=== PATIENT | male | born 1995 | race Caucasian/White ===

== ENCOUNTER 2016-06-15 08:40 | Emergency (ER) | payer SELFPAY ==
[2016-06-15] MEDS ORDERED: NORMAL SALINE 1000 ML 1,000 ML IV PRN (09:20)
[2016-06-15] MEDS ORDERED: IPRATROPIUM/ALBUTEROL 0.5-2.5 MG/3 ML AMPUL NEB ONE (09:21)
--- NOTE | 2016-06-15 09:23 | ER Document Report ---
ED Respiratory Problem - General Chief Complaint: Cold Symptoms Stated Complaint: SHOULDER PAIN Time seen by provider: 09:22 Mode of Arrival: Ambulatory Information source: Patient Notes: 20-year-old man who presents to the emergency room with sharp right chest pain, shortness of breath, productive cough (brown grayish sputum). Patient states he awoke with the pain. TRAVEL OUTSIDE OF THE [place] IN LAST 30 DAYS: No - HPI Patient complains to provider of: No: Asthma, Chest pain, CHF, COPD, Cough, Hurts to breath, Short of breath, Other Onset: Just prior to arrival Duration: Continuous Initiating Event: No: Allergy, Aspiration/Choking, Exertion, Exposure to chemicals, Exposure to dust, Exposure to fumes, Exposure to mold, Exposure to smoke, Out of meds, Sports/exercise, URI, Other Quality of pain: Sharp Severity: Moderate Pain Level: 3 Context: Smoker. denies: Hx CHF, Hx COPD Short of Breath: Moderate Chest pain/discomfort: Right Cough: Productive Sputum amount: Small Sputum color: Pham Sputum consistency: denies: Frothy, Mucoid, Mucoid Plug, Tenacious, Thick, Thin At home treatment: denies: Bronchodilators, CPAP, Diuretics, Inhaled steroids, Oral steroids, Oxygen, Singulair, Theophylline EMS treatments: No: Bronchodilators, CPAP, Diuretics, Epinephrine, Nitrates, Oxygen, Solumedrol Associated symptoms: Chills, Congestion, Sweaty Similar symptoms previously: No Recently seen / treated by doctor: No - Related Data Allergies/Adverse Reactions: No Known Allergies Allergy (Verified 06/15/16 08:44) Past Medical History - General Information source: Patient - Social History Smoking Status: Current Every Day Smoker Cigarette use (# per day): Yes - 1 pack per day for the past 9 years Chew tobacco use (# tins/day): No Frequency of alcohol use: None Drug Abuse: None Lives with: Family Family History: Reviewed & Not Pertinent Patient has suicidal ideation: No Patient has homicidal ideation: No - Medical History Medical History: Negative Renal/ Medical History: Denies: Hx Peritoneal Dialysis Surgical Hx: Negative - Immunizations Hx Diphtheria, Pertussis, Tetanus Vaccination: No Review of Systems - Review of Systems Notes: Review of systems: Constitutional: Denies fever, chills. EENT: Denies ear pain, sinus tenderness, throat pain, throat swelling. Cardiovascular: Denies chest pain, palpitations, dyspnea or edema. Respiratory: See H&P Abdomen: Denies abdominal pain, nausea, vomiting, diarrhea. Denies BRBPR or melena. Genitourinary: Denies dysuria, pyuria, hematuria, flank pain. Musculoskeletal: denies joint pain or swelling, denies back pain. Neurologic: Denies headache, photophobia, neck stiffness, weakness. Denies loss of bowel or bladder function. Denies saddle anesthesia. Skin: Denies rash, lesions. Physical Exam - Vital signs Vitals: Temp Pulse Resp BP Pulse Ox 97.9 F 100 18 148/76 H 100 06/15/16 08:45 06/15/16 08:45 06/15/16 08:45 06/15/16 08:45 06/15/16 08:45 Notes: Physical exam: GENERAL: 20-year-old man, alert and oriented 3, no acute distress. HEAD: Atraumatic, normocephalic. EYES: Pupils equal round and reactive to light, extraocular movements intact, sclera anicteric, conjunctiva are normal. ENT: TMs normal, nares patent, oropharynx clear without exudates. Moist mucous membranes. NECK: Normal range of motion, supple without lymphadenopathy or JVD. LUNGS: Scattered wheezes HEART: Regular rate and rhythm without murmurs, rubs or gallops. ABDOMEN: Soft, normoactive bowel sounds. No tenderness to palpation. No guarding, no rebound. No masses appreciated. EXTREMITIES: Normal range of motion, no pitting or edema. No clubbing or cyanosis. NEUROLOGICAL: Cranial nerves II through XII grossly intact. Normal speech, normal gait. PSYCH: Normal mood, normal affect. SKIN: Warm, Dry, normal turgor, no rashes or lesions noted. Course - Re-evaluation Re-evalutation: 06/15/16 21:27 I discussed case with Dr. Lay who reviewed the CT scan. He did bring up the possibility of lymphoma and based upon where the lesions are, recommended referring to [place] because of the need for getting a tissue diagnosis. I discussed the case with Dr. Anguiano at [place] and he is willing to see the patient on in the [facility] for evaluation. I have faxed over the patient's x-ray report, CT report and labs with the patient demographics to Dr. Anguiano's office. Additionally, I have given a copy of the CT and chest x-ray on disc as well as a copy of the labs to bring to the clinic on . - Vital Signs Vital signs: Temp Pulse Resp BP Pulse Ox 98.0 F 80 16 140/70 H 100 06/15/16 14:32 06/15/16 14:32 06/15/16 14:32 06/15/16 14:32 06/15/16 14:32 - Laboratory Result Diagrams: 06/15/16 09:40 06/15/16 09:40 Laboratory results interpreted by me: 06/15/16 09:40 WBC 12.3 H Absolute Neutrophils 9.2 H - Diagnostic Test Radiology reviewed: Image reviewed, Reports reviewed - Chest x-ray was clear. CTA shows a pleural-based mass 2 x 2 centimeters in the right upper hemithorax. There is also possible anterior mediastinal mass. - EKG Interpretation by Me Rate: Normal Rhythm: NSR - EKG shows normal sinus rhythm with a ventricular rate of 86, no acute ST-T wave changes Discharge - Discharge Clinical Impression: pleuritic chest pain, right pleural mass Condition: Stable Disposition: HOME, SELF-CARE Instructions: Oral Narcotic Medication ([facility]) Additional Instructions: Recommendations: As we discussed, it is important that you follow-up with doctors in [place] to assess whether this could be possible lymphoma. You have an appointment at: [facility] [place] [address] [place] [address] [phone] They wanted you they are this at 1245 Bring the packet that we've given you: The CT and chest x-ray on disc, labs, x- ray and CT reports. Return to the emergency room for worsening pain or shortness of breath. Take the pain medicine as prescribed: See the narcotic instruction sheet. Do not drive or operate machinery while on the narcotic. Take the antibiotic as prescribed Prescriptions: Azithromycin [Zithromax 250 mg Tablet] 250 mg PO ASDIR PRN #6 tablet PRN Reason: Oxycodone HCl/Acetaminophen [Percocet 5-325 mg Tablet] 1 - 2 tab PO ASDIR PRN # 25 tablet PRN Reason: Forms: Parent Work Note
[2016-06-15 09:51] LABS: ABSOLUTE EOSINOPHILS # (AUTO) 0.3 10^3/uL (0.0-0.6); ABSOLUTE LYMPHOCYTES (AUTO) 2.1 10^3/uL (0.5-4.7); ABSOLUTE MONOCYTES (AUTO) 0.7 10^3/uL (0.1-1.4); ABSOLUTE NEUT (AUTO) 9.2 10^3/uL (1.7-8.2); BASOPHILS % (AUTO) 0.3 % (0-2); EOSINOPHILS % (AUTO) 2.5 % (0-6); HEMATOCRIT 42.9 % (37.9-51.0); HEMOGLOBIN 15.1 g/dL (13.5-17.0); HGB HCT DIFFERENCE 2.4; LYMPHOCYTES % (AUTO) 17.1 % (13-45); MEAN CORPUSCULAR HEMOGLOBIN 29.6 pg (27.0-33.4); MEAN CORPUSCULAR HGB CONC 35.2 g/dL (32.0-36.0); MEAN CORPUSCULAR VOLUME 84 fl (80-97); MONOCYTES % (AUTO) 5.3 % (3-13); RED BLOOD COUNT 5.11 10^6/uL (4.35-5.55); RED CELL DISTRIBUTION WIDTH 13.4 % (11.5-14.0); SEGMENTED NEUTROPHILS % (AUTO) 74.8 % (42-78); WHITE BLOOD COUNT 12.3 10^3/uL (4.0-10.5)
[2016-06-15 10:07] LABS: ALANINE AMINOTRANSFERASE 28 U/L (21-72); ALBUMIN 4.5 g/dL (3.5-5.0); ALKALINE PHOSPHATASE 90 U/L (38-126); ANION GAP 15 (5-19); ASPARTATE AMINO TRANSFERASE 21 U/L (17-59); BILIRUBIN,TOTAL 0.7 mg/dL (0.2-1.3); BLOOD UREA NITROGEN 11 mg/dL (7-20); CALCIUM 9.8 mg/dL (8.4-10.2); CARBON DIOXIDE 26 mmol/L (22-30); CHLORIDE 101 mmol/L (98-107); CREATININE RESULT 0.82 mg/dL (0.52-1.25); GLUCOSE 108 mg/dL (75-110); POTASSIUM 4.5 mmol/L (3.6-5.0); SODIUM 141.5 mmol/L (137-145); TOTAL PROTEIN 7.8 g/dL (6.3-8.2)
[2016-06-15] MEDS ORDERED: METHYLPREDNISOLONE INJ 125 MG/2 ML SDV IV ONE (10:19)
[2016-06-15] MEDS ORDERED: OXYCODONE-ACETAMINOPHEN 5-325 MG TABLET PO ONE (11:25)
[2016-06-15 12:09] LABS: CREATINE KINASE MB < 0.22 ng/mL (<4.55); TROPONIN I < 0.012 ng/mL
[2016-06-15] MEDS ORDERED: AZITHROMYCIN 250 MG TABLET PO ONE (13:20)
[2016-06-15 14:33] VITALS: BP 140/70
--- NOTE | 2016-06-15 15:31 | EKG REPORT ---
SEVERITY:- NORMAL ECG - SINUS RHYTHM : Confirmed by: Carlton Whyte MD 15-Jun-2016 15:31:15
== END 2016-06-15 14:33 | disposition home or self-care (01) ==
LOC: ER 08:40
DX: R07.81 Pleurodynia (principal); R91.8 Other nonspecific abnormal finding of lung field; R06.02 Shortness of breath; R05 Cough; F17.210 Nicotine dependence, cigarettes, uncomplicated
CPT/HCPCS: 93005; 94640; 99284; 96361; 96374; 36415; 82553; 82550; 85025; 80053; 84484; 71020; 71275; 93010; J2930; J7030; J7620

== ENCOUNTER 2016-07-20 23:34 | Emergency (ER) | payer OTHER ==
[2016-07-21 00:22] LABS: ABSOLUTE BASOPHILS # (AUTO) 0.1 10^3/uL (0.0-0.2); ABSOLUTE LYMPHOCYTES (AUTO) 2.6 10^3/uL (0.5-4.7); ABSOLUTE MONOCYTES (AUTO) 0.7 10^3/uL (0.1-1.4); ABSOLUTE NEUT (AUTO) 9.1 10^3/uL (1.7-8.2); BASOPHILS % (AUTO) 0.4 % (0-2); EOSINOPHILS % (AUTO) 0.2 % (0-6); HEMATOCRIT 41.4 % (37.9-51.0); HEMOGLOBIN 14.4 g/dL (13.5-17.0); HGB HCT DIFFERENCE 1.8; LYMPHOCYTES % (AUTO) 20.9 % (13-45); MEAN CORPUSCULAR HEMOGLOBIN 28.6 pg (27.0-33.4); MEAN CORPUSCULAR HGB CONC 34.8 g/dL (32.0-36.0); MEAN CORPUSCULAR VOLUME 82 fl (80-97); MONOCYTES % (AUTO) 5.4 % (3-13); RED BLOOD COUNT 5.03 10^6/uL (4.35-5.55); RED CELL DISTRIBUTION WIDTH 13.8 % (11.5-14.0); SEGMENTED NEUTROPHILS % (AUTO) 73.1 % (42-78); WHITE BLOOD COUNT 12.4 10^3/uL (4.0-10.5)
[2016-07-21 00:39] LABS: ALANINE AMINOTRANSFERASE 28 U/L (21-72); ALBUMIN 4.8 g/dL (3.5-5.0); ALKALINE PHOSPHATASE 80 U/L (38-126); ANION GAP 17 (5-19); ASPARTATE AMINO TRANSFERASE 16 U/L (17-59); BILIRUBIN,DIRECT 0.1 mg/dL (0.0-0.4); BILIRUBIN,TOTAL 0.6 mg/dL (0.2-1.3); BLOOD UREA NITROGEN 12 mg/dL (7-20); CALCIUM 10.6 mg/dL (8.4-10.2); CARBON DIOXIDE 25 mmol/L (22-30); CHLORIDE 104 mmol/L (98-107); CREATININE RESULT 0.76 mg/dL (0.52-1.25); GLUCOSE 100 mg/dL (75-110); SODIUM 145.8 mmol/L (137-145); TOTAL PROTEIN 7.5 g/dL (6.3-8.2)
[2016-07-21 00:40] LABS: POTASSIUM 3.8 mmol/L (3.6-5.0)
[2016-07-21] MEDS ORDERED: NORMAL SALINE 500 ML IV ONE (01:20)
[2016-07-21] MEDS ORDERED: ACETAMINOPHEN 325 MG TABLET PO ONE (01:20)
--- NOTE | 2016-07-21 01:27 | ER Document Report ---
ED General - General Chief Complaint: Cough Stated Complaint: COUGH/BLOOD Notes: Patient is a 20-year-old male who presents with complaint of coughing up blood. He is in please custody as he has come from [place] [facility]. He was seen March 15 with chest pain and difficulty breathing. At that time is CT angiography which showed a lung mass in the right side. We made arrangements to follow-up with Dr. Anguiano in [place]. He did follow-up with Dr. Anguiano. She says at that appointment a told him they wanted to repeat CT scan in 6 weeks, which would be this . Tonight he started having some coughing up of blood. He says that was one episode where he coughed up moderate amount of blood. He's not had any since. He says he has a lot of pain and burning in his lungs since that episode. No recent fevers or infections. No other complaints at this time. He takes no medications and is otherwise healthy. He is a smoker. TRAVEL OUTSIDE OF THE [place] IN LAST 30 DAYS: No - Related Data Allergies/Adverse Reactions: No Known Allergies Allergy (Verified 06/15/16 08:44) Past Medical History - Social History Smoking Status: Current Every Day Smoker Chew tobacco use (# tins/day): No Frequency of alcohol use: None Drug Abuse: None Family History: Reviewed & Not Pertinent Patient has suicidal ideation: No Patient has homicidal ideation: No Pulmonary Medical History: Reports: Hx Asthma Renal/ Medical History: Denies: Hx Peritoneal Dialysis GI Medical History: Reports: Hx Gastroesophageal Reflux Disease Surgical Hx: Negative - Immunizations Hx Diphtheria, Pertussis, Tetanus Vaccination: No Review of Systems - Review of Systems Notes: My Normal Review Basic REVIEW OF SYSTEMS: CONSTITUTIONAL : Denies fever, chills, or sweats. Denies recent illness. EENT: Denies eye, ear, throat, or mouth pain or symptoms. Denies nasal or sinus congestion. CARDIOVASCULAR: Burning in chest RESPIRATORY: Hemoptysis GASTROINTESTINAL: Denies abdominal pain. Denies nausea, vomiting, or diarrhea. Denies constipation. Last BM: MUSCULOSKELETAL: Denies neck or back pain or joint pain or swelling. SKIN: Denies rash or skin lesions. HEMATOLOGIC : Denies easy bruising or bleeding. NEUROLOGICAL: Denies altered mental status or loss of consciousness. Denies headache. Denies weakness or paralysis or loss of use of either side. Denies problems with gait or speech. Denies sensory or motor loss. ALL OTHER SYSTEMS REVIEWED AND NEGATIVE. Physical Exam - Vital signs Vitals: Temp Pulse Resp BP Pulse Ox 98.0 F 55 L 20 107/52 L 97 07/20/16 23:41 07/20/16 23:41 07/20/16 23:41 07/20/16 23:41 07/20/16 23:41 - Notes Notes: General Appearance: Well nourished, alert, cooperative, no acute distress, mild obvious discomfort. Vitals: reviewed, See vital signs table. Head: no swelling or tenderness to the head Eyes: PERRL, EOMI, Conjuctiva clear Mouth: No decreasd moisture Lungs: No wheezing, No rales, No rhonci, No accessory muscle use, good air exchange bilaterally. Heart: Normal rate, Regular rythm, No murmur, no rub Abdomen: Normal BS, soft, No rigidity, No abdominal tenderness, No guarding, no rebound, no abdominal masses, no organomegaly Extremities: strength 5/5 in all extremities, good pulses in all extremities, no swelling or tenderness in the extremities, no edema. Skin: warm, dry, appropriate color, no rash Neuro: speech clear, oriented x 3, normal affect, responds appropriately to questions. Course - Re-evaluation Re-evalutation: 07/21/16 05:52 Patient is been very well-appearing the whole time spent here. Only complaint he had was a burning going into his chest which she later said felt more like reflux. We did give him a GI cocktail which did help the symptoms. He says that when the blood came up it was coughing. He says it was not vomiting. I did repeat a CT scan of his chest which showed no evidence of the lung mass. Lung mass appears to have disappeared. Patient is feeling much improved and looks well. We'll place him on Prilosec. Informed him that if he has any coughing of blood or any vomiting of blood he must return to ER immediately. The no from the [place] [facility] says the patient coughed up blood clots. Patient denies seeing blood clots. He says it was 1 time he coughed up some blood. Patient again strongly encouraged return to ER if has any recurrence of his symptoms or if has increasing pain. Patient again encouraged to still follow-up with his doctor in [place] even though his CT scan is now normal. Patient agrees with plan and will be discharged home. Dictation of this chart was performed using voice recognition software; therefore, there may be some unintended grammatical errors. - Vital Signs Vital signs: Temp Pulse Resp BP Pulse Ox 98.0 F 72 18 128/72 H 97 07/21/16 04:36 07/21/16 04:36 07/21/16 04:36 07/21/16 04:36 07/21/16 04:36 - Laboratory Result Diagrams: 07/21/16 00:10 07/21/16 00:10 Laboratory results interpreted by me: 07/21/16 07/21/16 00:10 00:10 WBC 12.4 H Absolute Neutrophils 9.1 H Sodium 145.8 H Calcium 10.6 H AST 16 L Discharge - Discharge Clinical Impression: Hemoptysis Condition: Good Disposition: HOME, SELF-CARE Additional Instructions: Please have a low threshold to return to ER if you have recurrent coughing up of blood, worsening pain, difficulty breathing, or feel unwell. Your CT scan of your chest was normal today and did not show any evidence of recurrence of the mass that was seen on your previous CT scan. Despite this it is still very important that you follow up with Dr. Anguiano in [place] for your repeat evaluation. Prescriptions: Omeprazole Magnesium [Prilosec Otc] 40 mg PO DAILY #30 tablet.
[2016-07-21] MEDS ORDERED: MAG HYDROX/AL HYDROX/SIMETH SUSP 30 ML UDCUP PO ONE (03:22)
[2016-07-21] MEDS ORDERED: LIDOCAINE 2% VISCOUS SOLN 20 ML UDCUP PO ONE (03:22)
[2016-07-21] MEDS ORDERED: METOCLOPRAMIDE HCL ORAL SOLN 10 MG/10 ML UDCUP PO ONE (03:22)
[2016-07-21 04:40] VITALS: BP 128/72
== END 2016-07-21 04:30 | disposition home or self-care (01) ==
LOC: ER 23:34
DX: R04.2 Hemoptysis (principal); R05 Cough; F17.200 Nicotine dependence, unspecified, uncomplicated
CPT/HCPCS: 99284; 96360; 36415; 85025; 80053; 71020; 71260; J3490; J7040

== ENCOUNTER 2016-11-14 08:24 | Emergency (ER) | payer SELFPAY ==
[2016-11-14] MEDS ORDERED: OXYCODONE-ACETAMINOPHEN 5-325 MG TABLET PO ONE (09:00)
--- NOTE | 2016-11-14 09:11 | ER Document Report ---
ED GI/ - General Chief Complaint: Testicular Lump Stated Complaint: RIGHT TESTICLE PAIN Time Seen by Provider: 11/14/16 08:49 Mode of Arrival: Ambulatory Information source: Patient Notes: Patient presents complaining of right testicular pain and swelling that started 6 days ago. Patient does complain of some burning with urination and penile discharge that was white. Patient denies any concerns about sexually transmitted infection. TRAVEL OUTSIDE OF THE [place] IN LAST 30 DAYS: No - HPI Patient complains to provider of: Abdominal pain - Lower pelvic area, Dysuria, Groin pain, Testicular pain. No: Urinary retention, Vomiting Onset: Last week Timing/Duration: Persistent Quality of pain: Burning Pain Level: 5 Location: Pelvis, Right testicle Sexual history: Active Associated symptoms: Dysuria, Penile discharge, Urinary frequency. denies: Diarrhea, Fever, Inguinal mass, Nausea, Urinary hesitancy, Vomiting Exacerbated by: Movement Relieved by: Denies Similar symptoms previously: No Recently seen / treated by doctor: No - Related Data Allergies/Adverse Reactions: No Known Allergies Allergy (Verified 11/14/16 08:29) Past Medical History - General Information source: Patient - Social History Smoking Status: Current Every Day Smoker Chew tobacco use (# tins/day): No Frequency of alcohol use: Rare Drug Abuse: Other - iv drug use Occupation: [employer] Family History: Reviewed & Not Pertinent Pulmonary Medical History: Reports: Hx Asthma Renal/ Medical History: Denies: Hx Peritoneal Dialysis GI Medical History: Reports: Hx Gastroesophageal Reflux Disease Surgical Hx: Negative - Immunizations Hx Diphtheria, Pertussis, Tetanus Vaccination: No Review of Systems - Review of Systems Constitutional: No symptoms reported. denies: Fever EENT: No symptoms reported Cardiovascular: No symptoms reported Respiratory: No symptoms reported. denies: Cough, Short of breath Gastrointestinal: Abdominal pain - r inguinal/pelvic area. denies: Nausea, Vomiting Genitourinary: Dysuria, Frequency Male Genitourinary: Testicular pain, Penile discharge Musculoskeletal: No symptoms reported. denies: Back pain Skin: No symptoms reported Hematologic/Lymphatic: No symptoms reported Neurological/Psychological: No symptoms reported Physical Exam - Vital signs Vitals: Temp Pulse Resp BP Pulse Ox 97.6 F 98 20 142/77 H 99 11/14/16 08:29 11/14/16 08:29 11/14/16 08:29 11/14/16 08:29 11/14/16 08:29 - General General appearance: Appears well, Alert In distress: None - HEENT Head: Normocephalic, Atraumatic Eyes: Normal Nasal: Normal Mouth/Lips: Normal Mucous membranes: Normal Neck: Normal, Supple. No: Lymphadenopathy - Respiratory Respiratory status: No respiratory distress Chest status: Nontender Breath sounds: Normal. No: Rales, Rhonchi, Stridor, Wheezing Chest palpation: Normal - Cardiovascular Rhythm: Regular Heart sounds: S1 appreciated, S2 appreciated Murmur: No - Abdominal Inspection: Normal Distension: No distension Bowel sounds: Normal Tenderness: Tender - right lower pelvic/inguinal area Organomegaly: No organomegaly - Genitourinary Inspection: Normal Tenderness: Testicle tender - right, Epididymis tender - right Cremasteric reflex: Right reflex absent Scrotum: Swelling - r testicle Notes: Cecilia RN as standby no drainage or discharge from the penis, no inguinal lymphadenopathy - Back Back: Normal, Nontender. No: CVA tenderness - Extremities General upper extremity: Normal inspection, Normal ROM General lower extremity: Normal inspection, Normal ROM - Neurological Neuro grossly intact: Yes Cognition: Normal Angella Coma Scale Eye Opening: Spontaneous [place] Coma Scale Verbal: Oriented [place] Coma Scale Motor: Obeys Commands Angella Coma Scale Total: 15 - Psychological Associated symptoms: Normal affect, Normal mood - Skin Skin Temperature: Warm Skin Moisture: Dry Skin Color: Normal Course - Re-evaluation Re-evalutation: 11/14/16 10:[address] troy regarding pt presentation and diagnostic test results, agrees with plan to treat for epididymitis. Patient's abdomen soft, patient continues with right lower pelvic tenderness, no McBurney point tenderness. No guarding. 11/14/16 10:49 The patient has been informed that they may have pre-hypertension or hypertension based on a blood pressure reading in the emergency department. I recommend that patient call the primary care provider listed on their discharge instructions or a physician of their choice by this week to arrange follow-up for further evaluation of possible pre-hypertension or hypertension. - Vital Signs Vital signs: Temp Pulse Resp BP Pulse Ox 98.0 F 76 16 116/65 98 11/14/16 10:56 11/14/16 10:56 11/14/16 10:56 11/14/16 10:56 11/14/16 10:56 - Laboratory Result Diagrams: 11/14/16 09:17 11/14/16 09:17 Laboratory results interpreted by me: 11/14/16 11/14/16 11/14/16 09:17 09:17 09:17 RDW 14.1 H Glucose 120 H AST 15 L Urine Protein 100 H Urine Blood LARGE H Ur Leukocyte Esterase TRACE H Labs- Entire Visit 11/14/16 11/14/16 11/14/16 09:17 09:17 09:17 WBC 9.3 RBC 4.83 Hgb 13.8 Hct 40.0 MCV 83 MCH 28.6 MCHC 34.5 RDW 14.1 H Plt Count 249 Seg Neutrophils % 61.1 Lymphocytes % 29.9 Monocytes % 6.4 Eosinophils % 1.9 Basophils % 0.7 Absolute Neutrophils 5.7 Absolute Lymphocytes 2.8 Absolute Monocytes 0.6 Absolute Eosinophils 0.2 Absolute Basophils 0.1 Sodium 142.6 Potassium 4.1 Chloride 103 Carbon Dioxide 27 Anion Gap 13 BUN 9 Creatinine 0.82 Est GFR ( Amer) > 60 Est GFR (Non-Af Amer) > 60 Glucose 120 H Calcium 9.5 Total Bilirubin 0.6 Direct Bilirubin 0.3 Indirect Bilirubin Not Reportable Neonat Total Bilirubin Not Reportable AST 15 L ALT 28 Alkaline Phosphatase 99 Total Protein 7.4 Albumin 4.4 Urine Color YELLOW Urine Appearance SLIGHTLY-CLOUDY Urine pH 5.0 Ur Specific [place] 1.030 Urine Protein 100 H Urine Glucose (UA) NEGATIVE Urine Ketones NEGATIVE Urine Blood LARGE H Urine Nitrite NEGATIVE Urine Bilirubin NEGATIVE Urine Urobilinogen NEGATIVE Ur Leukocyte Esterase TRACE H Urine WBC (Auto) 43 Urine RBC (Auto) >182 Squamous Epi Cells Auto <1 Urine Mucus (Auto) OCC Urine Ascorbic Acid NEGATIVE 11/14/16 11:19 - Diagnostic Test Radiology reviewed: Reports reviewed Discharge - Discharge Clinical Impression: Acute epididymitis, Scrotal pain UTI (urinary tract infection) Qualifiers: Urinary tract infection type: site unspecified Hematuria presence: with hematuria Qualified Code(s): N39.0 - Urinary tract infection, site not specified Condition: Stable Disposition: HOME, SELF-CARE Instructions: Anti-Inflammatory Medication ([facility]), Doxycycline ([facility]), Epididymitis ([facility]), Urinary Tract Infection ([facility]), Rocephin ([facility]) Additional Instructions: Return immediately for any new or worsening symptoms Followup with your primary care provider, call tomorrow to make a followup appointment Follow-up with the urologist for any continued problems Avoid use of IV drugs wear supportive underwear cultures are pending, we will call if you need any different treatment Prescriptions: Doxycycline Hyclate 100 mg PO BID #20 capsule Naproxen [Naprosyn 250 Nmg Tablet] 1 tab PO BID #14 tablet Forms: Elevated Blood Pressure, Return to Work Referrals: [facility] [Provider Group] - Follow up as needed [facility] [Provider Group] - Follow up as needed
[2016-11-14 09:34] LABS: ABSOLUTE BASOPHILS # (AUTO) 0.1 10^3/uL (0.0-0.2); ABSOLUTE EOSINOPHILS # (AUTO) 0.2 10^3/uL (0.0-0.6); ABSOLUTE LYMPHOCYTES (AUTO) 2.8 10^3/uL (0.5-4.7); ABSOLUTE MONOCYTES (AUTO) 0.6 10^3/uL (0.1-1.4); ABSOLUTE NEUT (AUTO) 5.7 10^3/uL (1.7-8.2); BASOPHILS % (AUTO) 0.7 % (0-2); EOSINOPHILS % (AUTO) 1.9 % (0-6); HEMOGLOBIN 13.8 g/dL (13.5-17.0); HGB HCT DIFFERENCE 1.4; LYMPHOCYTES % (AUTO) 29.9 % (13-45); MEAN CORPUSCULAR HEMOGLOBIN 28.6 pg (27.0-33.4); MEAN CORPUSCULAR HGB CONC 34.5 g/dL (32.0-36.0); MEAN CORPUSCULAR VOLUME 83 fl (80-97); MONOCYTES % (AUTO) 6.4 % (3-13); RED BLOOD COUNT 4.83 10^6/uL (4.35-5.55); RED CELL DISTRIBUTION WIDTH 14.1 % (11.5-14.0); SEGMENTED NEUTROPHILS % (AUTO) 61.1 % (42-78); WHITE BLOOD COUNT 9.3 10^3/uL (4.0-10.5)
[2016-11-14 09:41] LABS: APPEARANCE,URINE SLIGHTLY-CLOUDY; BILIRUBIN,URINE NEGATIVE (NEGATIVE); GLUCOSE, URINE NEGATIVE (NEGATIVE); KETONES,URINE NEGATIVE (NEGATIVE); LEUKOCYTE ESTERASE,URINE TRACE (NEGATIVE); NITRITE,URINE NEGATIVE (NEGATIVE); PROTEIN,URINE 100 mg/dL (NEGATIVE); UROBILINOGEN,URINE NEGATIVE mg/dL (<2.0)
[2016-11-14 09:50] LABS: ALANINE AMINOTRANSFERASE 28 U/L (21-72); ALBUMIN 4.4 g/dL (3.5-5.0); ALKALINE PHOSPHATASE 99 U/L (38-126); ANION GAP 13 (5-19); ASPARTATE AMINO TRANSFERASE 15 U/L (17-59); BILIRUBIN,DIRECT 0.3 mg/dL (0.0-0.4); BILIRUBIN,TOTAL 0.6 mg/dL (0.2-1.3); BLOOD UREA NITROGEN 9 mg/dL (7-20); CALCIUM 9.5 mg/dL (8.4-10.2); CARBON DIOXIDE 27 mmol/L (22-30); CHLORIDE 103 mmol/L (98-107); CREATININE RESULT 0.82 mg/dL (0.52-1.25); GLUCOSE 120 mg/dL (75-110); POTASSIUM 4.1 mmol/L (3.6-5.0); SODIUM 142.6 mmol/L (137-145); TOTAL PROTEIN 7.4 g/dL (6.3-8.2)
--- NOTE | 2016-11-14 10:16 | RADIOLOGY REPORT (SQ) ---
EXAM DESCRIPTION: U/S SCROTUM W/DOPPLER COMPLETED DATE/TIME: 11/14/2016 9:59 am REASON FOR STUDY: r scrotal pain,swelling COMPARISON: None. TECHNIQUE: Static and realtime shook scale imaging of the scrotum and testes. Selected color Doppler and spectral images recorded to document blood flow. LIMITATIONS: None. FINDINGS: RIGHT: TESTICLE: Normal size. Normal echotexture. Normal blood flow. No mass. EPIDIDYMIS: Enlarged and hyperemic compared to the left. HYDROCELE OR VARICOCELE: No. HERNIA OR EXTRA-TESTICULAR MASS: No. OTHER: No other significant finding. LEFT: TESTICLE: Normal size. Normal echotexture. Normal blood flow. No mass. EPIDIDYMIS: Normal. HYDROCELE OR VARICOCELE: No. HERNIA OR EXTRA-TESTICULAR MASS: No. OTHER: No other significant finding. IMPRESSION: Right epididymitis. TECHNICAL DOCUMENTATION: JOB ID: [id number] [employer]- All Rights Reserved
[2016-11-14] MEDS ORDERED: CEFTRIAXONE RTU 1 GM/D5W 50 ML IV ONE (10:27)
[2016-11-14] MEDS ORDERED: DOXYCYCLINE HYCLATE 100 MG TABLET PO ONE (10:29)
[2016-11-14] MEDS ORDERED: LIDOCAINE 1% INJ-PF (10 MG/ML) 30 ML SDV ONE (10:37)
[2016-11-14] MEDS ORDERED: CEFTRIAXONE INJ 1000 MG VIAL ONE (10:37)
[2016-11-14 10:58] VITALS: BP 116/65
[2016-11-14 11:03] LABS: CHLAM PCR DETECTED (NOT DETECT)
== END 2016-11-14 10:58 | disposition home or self-care (01) ==
LOC: ER 08:24
DX: N45.1 Epididymitis (principal); N39.0 Urinary tract infection, site not specified; N50.89 Other specified disorders of the male genital organs; N50.811 Right testicular pain; R10.9 Unspecified abdominal pain; R10.2 Pelvic and perineal pain; R30.0 Dysuria; R10.30 Lower abdominal pain, unspecified
CPT/HCPCS: 99284; 96372; 36415; 87086; 85025; 80053; 81001; 87491; 87591; 76870; 93976; J3490; J0696

== ENCOUNTER 2017-11-08 08:12 | Emergency (ER) | payer SELFPAY ==
[2017-11-08 08:21] VITALS: BP 143/74
--- NOTE | 2017-11-08 09:06 | ER Document Report ---
HPI - HPI Patient complains to provider of: Rash since he was in skilled nursing Pain Level: Denies Context: 22-year-old male was diagnosed with scabies while he was in skilled nursing and was treated with oral anti-fungal and antibiotics. It itches at night. He thinks that he was not treated properly. Associated Symptoms: None Exacerbated by: Denies Relieved by: Denies Similar symptoms previously: Yes Recently seen / treated by doctor: No - ROS ROS below otherwise negative: Yes Systems Reviewed and Negative: Yes All other systems reviewed and negative Past Medical History - General Information source: Patient - Social History Smoking Status: Current Every Day Smoker Frequency of alcohol use: None Drug Abuse: None Lives with: Family Family History: Reviewed & Not Pertinent Pulmonary Medical History: Reports: Hx Asthma Renal/ Medical History: Denies: Hx Peritoneal Dialysis GI Medical History: Reports: Hx Gastroesophageal Reflux Disease Surgical Hx: Negative - Immunizations Hx Diphtheria, Pertussis, Tetanus Vaccination: No Vertical Provider Document - CONSTITUTIONAL Agree With Documented VS: Yes Exam Limitations: No Limitations - INFECTION CONTROL TRAVEL OUTSIDE OF THE [place] IN LAST 30 DAYS: No - DERM Integumentary: Rash - Isolated groin, waist, finger web crusted papules Course - Vital Signs Vital signs: Temp Pulse Resp BP Pulse Ox 97.9 F 96 18 143/74 H 97 11/08/17 08:19 11/08/17 08:19 11/08/17 08:19 11/08/17 08:19 11/08/17 08:19 Discharge - Discharge Clinical Impression: Scabies Condition: Good Disposition: HOME, SELF-CARE Instructions: Anti-Mite Skin Creams, Scabies ([facility]) Additional Instructions: Apply the cream from the neck down between fingers and toes pubic and buttocks, leave on for 12 hours and then wash off You may itch up to 2 weeks but this should kill the scabies See a senior warehouse clerk if this persists. Prescriptions: Permethrin [Elimite] 60 gm TP ONCE PRN 1 Days cream..g. PRN Reason: Referrals: MICHAEL DOW DO [ACTIVE STAFF] - Follow up as needed
== END 2017-11-08 09:11 | disposition home or self-care (01) ==
LOC: ER 08:12
DX: B86 Scabies (principal); J45.909 Unspecified asthma, uncomplicated; F17.200 Nicotine dependence, unspecified, uncomplicated
CPT/HCPCS: 99283

== ENCOUNTER 2018-07-29 10:47 | Emergency (ER) | payer MEDICAID ==
[2018-07-29 10:52] VITALS: BP 137/79
[2018-07-29] MEDS ORDERED: PENICILLIN V POTASSIUM 500 MG TABLET PO ONE (11:07)
--- NOTE | 2018-07-29 11:09 | ER Document Report ---
HPI - HPI Patient complains to provider of: dental pain Time Seen by Provider: 07/29/18 11:02 Onset: Yesterday Onset/Duration: Gradual Quality of pain: Achy Pain Level: 4 Context: Patient presents complaining of dental pain that worsened yesterday. Patient does have an appointment this month with the dentist. Patient denies any fever or facial swelling. Associated Symptoms: denies: Fever Exacerbated by: Denies Relieved by: Denies Similar symptoms previously: Yes Recently seen / treated by doctor: No - ROS ROS below otherwise negative: Yes Systems Reviewed and Negative: Yes All other systems reviewed and negative - CONSTITUTIONAL Constitutional: DENIES: Fever - EENT Notes: Dental pain - RESPIRATORY Respiratory: DENIES: Coughing - GASTROINTESTINAL Gastrointestinal: DENIES: Nausea, Patient vomiting - DERM Skin Color: Normal Skin Problems: None Past Medical History - General Information source: Patient - Social History Smoking Status: Current Every Day Smoker Smoking Education Provided: Yes Frequency of alcohol use: None Drug Abuse: None Occupation: Self-employed Family History: Reviewed & Not Pertinent Pulmonary Medical History: Reports: Hx Asthma Renal/ Medical History: Denies: Hx Peritoneal Dialysis GI Medical History: Reports: Hx Gastroesophageal Reflux Disease Surgical Hx: Negative - Immunizations Hx Diphtheria, Pertussis, Tetanus Vaccination: No Vertical Provider Document - CONSTITUTIONAL Agree With Documented VS: Yes Exam Limitations: No Limitations General Appearance: WD/WN, No Apparent Distress - INFECTION CONTROL TRAVEL OUTSIDE OF THE [place] IN LAST 30 DAYS: No - HEENT HEENT: Atraumatic, Normocephalic Mouth Diagram: 1 - Dental decay, tenderness, no trismus, no drainable abscess, no sublingual or submental swelling. - NECK Neck: Normal Inspection, Supple. negative: Lymphadenopathy-Left, Lymphadenopath y-Right - RESPIRATORY Respiratory: Breath Sounds Normal, No Respiratory Distress - CARDIOVASCULAR Cardiovascular: Regular Rate, Regular Rhythm - BACK Back: Normal Inspection - MUSCULOSKELETAL/EXTREMETIES Musculoskeletal/Extremeties: MAEW, FROM - NEURO Level of Consciousness: Awake, Alert, Appropriate Motor/Sensory: No Motor Deficit - DERM Integumentary: Warm, Dry, No Rash Course - Vital Signs Vital signs: Temp Pulse Resp BP Pulse Ox 97.8 F 99 15 137/79 H 96 07/29/18 10:51 07/29/18 10:51 07/29/18 10:51 07/29/18 10:51 07/29/18 10:51 Discharge - Discharge Clinical Impression: Toothache Condition: Stable Disposition: HOME, SELF-CARE Instructions: Dentist, Penicillin V K ([facility]), Toothache ([facility]) Additional Instructions: Return immediately for any new or worsening symptoms Followup with your primary care provider, call tomorrow to make a followup appointment Follow-up with a dental care provider for recheck. Prescriptions: Naproxen [Naprosyn 250 Nmg Tablet] 1 tab PO BID #14 tablet Penicillin V Potassium [Penicillin Vk 500 mg Tablet] 500 mg PO BID #20 tablet Forms: Smoking Cessation Education Referrals: [facility] [Provider Group] - Follow up as needed
== END 2018-07-29 11:33 | disposition home or self-care (01) ==
LOC: ER 10:47
DX: K08.9 Disorder of teeth and supporting structures, unspecified (principal); F17.200 Nicotine dependence, unspecified, uncomplicated; K21.9 Gastro-esophageal reflux disease without esophagitis
CPT/HCPCS: 99282; J3490

== ENCOUNTER 2018-10-12 13:40 | Emergency (ER) | payer MEDICAID ==
[2018-10-12] MEDS ORDERED: CEPHALEXIN 500 MG CAPSULE PO ONE (15:43)
[2018-10-12] MEDS ORDERED: SULFAMETHOXAZOLE/TRIMETHOPRIM 800-160 MG TABLET PO ONE (15:43)
--- NOTE | 2018-10-12 16:27 | RADIOLOGY REPORT (SQ) ---
EXAM DESCRIPTION: FOREARM LEFT COMPLETED DATE/TIME: 10/12/2018 4:15 pm REASON FOR STUDY: possible needle fb COMPARISON: None. NUMBER OF VIEWS: Two views. TECHNIQUE: Two radiographic images acquired of the left forearm, including elbow and wrist in at [address] one projection. LIMITATIONS: None. FINDINGS: MINERALIZATION: Normal. BONES: No acute fracture. No worrisome bone lesions. SOFT TISSUES: Soft tissue swelling. No radiopaque foreign body. OTHER: No other significant finding. IMPRESSION: SOFT TISSUE SWELLING. NO RADIOPAQUE FOREIGN BODY. NO FRACTURE OR OTHER BONY FINDINGS. TECHNICAL DOCUMENTATION: JOB ID: [id number] [employer]- All Rights Reserved Reading location - IP/workstation name: [email or web address]
--- NOTE | 2018-10-12 16:58 | ER Document Report ---
ED Skin Rash/Insect Bite/Abscs - General Chief Complaint: Abscess Stated Complaint: LEFT ARM PAIN Time Seen by Provider: 10/12/18 15:36 Notes: Patient is a 22-year-old male presents to the emergency department for redness and swelling noted to his left elbow for the last 2 days. Patient's denying any fevers. Patient states he does take Subutex for heroin addiction. States in the last month he has been injecting the Subutex. States he did inject the Subutex 2 days ago on his left inner arm. States he feels as though this is potentially where the infection is coming from. Patient's denying any other history of MRSA or skin infections. Patient is denying any other complaints Patient states he is up-to-date on immunizations to include his tetanus. TRAVEL OUTSIDE OF THE [place] IN LAST 30 DAYS: No - Related Data Allergies/Adverse Reactions: No Known Allergies Allergy (Verified 10/12/18 13:48) Past Medical History - General Information source: Patient - Social History Smoking Status: Current Every Day Smoker Family History: Reviewed & Not Pertinent Patient has suicidal ideation: No Patient has homicidal ideation: No Pulmonary Medical History: Reports: Hx Asthma Renal/ Medical History: Denies: Hx Peritoneal Dialysis GI Medical History: Reports: Hx Gastroesophageal Reflux Disease - Immunizations Hx Diphtheria, Pertussis, Tetanus Vaccination: No Review of Systems - Review of Systems Constitutional: denies: Fever EENT: No symptoms reported Cardiovascular: No symptoms reported Respiratory: No symptoms reported Gastrointestinal: No symptoms reported Genitourinary: No symptoms reported Male Genitourinary: No symptoms reported Musculoskeletal: See HPI Skin: See HPI Hematologic/Lymphatic: No symptoms reported Neurological/Psychological: No symptoms reported Physical Exam - Vital signs Vitals: Temp Pulse Resp BP Pulse Ox 98.4 F 105 H 18 160/67 H 98 10/12/18 14:13 10/12/18 14:13 10/12/18 14:13 10/12/18 14:13 10/12/18 14:13 - Notes Notes: GENERAL: Alert, interacts well. No acute distress. HEAD: Normocephalic, atraumatic. EYES: Pupils equal, round, and reactive to light. Extraocular movements intact. ENT: Oral mucosa moist, tongue midline. NECK: Full range of motion. Supple. Trachea midline. LUNGS: Clear to auscultation bilaterally, no wheezes, rales, or rhonchi. No respiratory distress. HEART: Regular rate and rhythm. No murmur ABDOMEN: Soft, non-tender. Non-distended. Bowel sounds present in all 4 quadrants. EXTREMITIES: Moves all 4 extremities spontaneously. No edema, normal radial and dorsalis pedis pulses bilaterally. No cyanosis. Full range of motion left elbow with no pain. BACK: no cervical, thoracic, lumbar midline tenderness. No saddle anesthesia, normal distal neurovascular exam. NEUROLOGICAL: Alert and oriented x3. Normal speech. cranial nerves II through XII grossly intact PSYCH: Normal affect, normal mood. SKIN: Warm, dry, normal turgor. 5cm x 3cm area of erythema and induration noted to the medial aspect of the left elbow. Skin is nonfluctuant with a very slight light erythema noted around the 5 cm x 3 cm area. Course - Re-evaluation Re-evalutation: 10/12/18 16:55 Forearm X-Ray 10/12/18 15:43 IMPRESSION: SOFT TISSUE SWELLING. NO RADIOPAQUE FOREIGN BODY. NO FRACTURE OR OTHER BONY FINDINGS. Patient's x-ray reveals no signs of foreign bodies. Patient's area of erythema is hard to touch. It is not fluctuant. I discussed use of antibiotics with close return precautions and follow-up. I discussed use of warm baths and warm compresses. I also placed a surgical marker outline around the area of erythema. I have told the patient if in 48 hours of taking oral antibiotics the redness or swelling gets worse he should immediately return to the emergency room. Patient voices understanding, stable for discharge. - Vital Signs Vital signs: Temp Pulse Resp BP Pulse Ox 98.4 F 105 H 18 160/67 H 98 10/12/18 14:13 10/12/18 14:13 10/12/18 14:13 10/12/18 14:13 10/12/18 14:13 Discharge - Discharge Clinical Impression: Abscess Cellulitis Qualifiers: Site of cellulitis: extremity Site of cellulitis of extremity: upper extremity Laterality: left Qualified Code(s): L03.114 - Cellulitis of left upper limb Condition: Stable Disposition: HOME, SELF-CARE Instructions: Cephalexin ([facility]), Trimethoprim-Sulfa ([facility]), Abscess ([facility]), Cellulitis ([facility]) Additional Instructions: As we discussed you have been seen and treated in the emergency department for an abscess and cellulitis to your left elbow. At this point time it is hard to touch. This means that the opening up this pocket of infection would do more harm than good. Please make sure you are soaking it in warm water as well as using warm compresses. Please also make sure you are taking the antibiotics I have prescribed as prescribed. Please also make sure if in 48 hours of taking his antibiotics the redness or swelling has passed the marker I have placed you should immediately return to the emergency room. Was also immediately return to the emergency room for any other concerns. Prescriptions: Cephalexin Monohydrate [Keflex 500 mg Capsule] 500 mg PO BID 7 Days #14 capsule Sulfamethoxazole/Trimethoprim [Bactrim Ds Tablet] 1 each PO BID 7 Days #14 tablet Forms: Return to Work
[2018-10-12 17:05] VITALS: BP 141/62
== END 2018-10-12 17:05 | disposition home or self-care (01) ==
LOC: ER 13:40
DX: L02.91 Cutaneous abscess, unspecified (principal); L03.114 Cellulitis of left upper limb; J45.909 Unspecified asthma, uncomplicated; F17.200 Nicotine dependence, unspecified, uncomplicated
CPT/HCPCS: 99283; 73090; J3490